=== PATIENT | male | born 1990 | race African-American/Black ===

== ENCOUNTER 2019-01-09 16:55 | Emergency (ER) | payer SELFPAY ==
--- NOTE | 2019-01-09 17:36 | RAD ---
LEFT FOOT THREE VIEW: 01/09/19 HISTORY: Foot pain. COMPARISON: None. FINDINGS: Lisfranc interval is maintained. 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 No acute fracture or malalignment. Bipartite medial hallux sesamoid. IMPRESSION: No acute osseous abnormality. POS: HOME
== END 2019-01-09 17:57 | disposition home or self-care (01) ==
LOC: ERS 16:55
DX: M79.675 Pain in left toe(s) (principal); F17.210 Nicotine dependence, cigarettes, uncomplicated; W22.8XXA Striking against or struck by other objects, initial encounter

== ENCOUNTER 2019-10-05 13:40 | Emergency (ER) | payer SELFPAY ==
[2019-10-05] MEDS ORDERED: Lidocaine 1% w/Epinephrine 1:100K 20 ML VIAL ONE ×2 (13:53→13:54)
--- NOTE | 2019-10-05 14:25 | RAD ---
RIGHT WRIST 3 VIEWS: Date: 10/05/2019 COMPARISON: None. HISTORY: Laceration to the right wrist and thumb. FINDINGS: Three view examination of the right wrist demonstrates no displaced fracture or evidence of dislocati on. No radiopaque foreign body or subcutaneous gas noted. IMPRESSION: No acute fracture/dislocation, or radiopaque foreign body. POS: [facility]
[2019-10-05] MEDS ORDERED: Bacitracin 1 PK ONE (14:36)
== END 2019-10-05 14:40 | disposition home or self-care (01) ==
LOC: ERS 13:40
DX: S61.011A Laceration without foreign body of right thumb without damage to nail, initial encounter (principal); S61.511A Laceration without foreign body of right wrist, initial encounter; F31.9 Bipolar disorder, unspecified; F20.9 Schizophrenia, unspecified; F17.210 Nicotine dependence, cigarettes, uncomplicated; W25.XXXA Contact with sharp glass, initial encounter
CPT/HCPCS: 12001